=== PATIENT | female | born 1945 | race Caucasian/White ===

== ENCOUNTER 2022-02-06 09:15 | Inpatient (IN) | payer OTHER ==
[~2022-02-06] VITALS: Ht 154.9 cm; Wt 58.5 kg
[2022-02-06] MEDS ORDERED: NORVASC2.5 M1 PO (13:19)
[2022-02-06] MEDS ORDERED: CARVEDILOL25 MG (13:19)
[2022-02-10] MEDS ORDERED: HYDROCHLOROTHIA25 MG (07:59)
[2022-02-10] MEDS ORDERED: VASOTEC20 MG (08:00)
[2022-02-10] MEDS ORDERED: FAMOTIDINE40 MG (08:00)
[2022-02-10] MEDS ORDERED: FUROSEMIDE40 MG (08:00)
[2022-02-10] MEDS ORDERED: ATORVASTATIN CA40 MG (08:00)
[2022-02-10] MEDS ORDERED: VITAMIN D3125 MC1 (08:00)
== END 2022-02-12 15:49 | disposition expired | DRG 330 ==
LOC: ADM 09:15 → CIR.AMB 02-10 07:00 → SURH 02-10 07:55 → O/R 02-10 07:55 → EDSTATUS 02-10 09:15 → CIR.AMB 02-10 09:15 → SURH 02-10 09:15 → SURG 02-10 14:22 → SURH 02-10 18:42
PROVIDERS: ADMIT Colon & Rectal Surgery; ATTEND Colon & Rectal Surgery
PROC: 0DBP4ZZ Excision of Rectum, Percutaneous Endoscopic Approach (ICD-10-PCS; 2022-02-10)
PROC: 0DN84ZZ Release Small Intestine, Percutaneous Endoscopic Approach (ICD-10-PCS; 2022-02-10)
PROC: 0DJD8ZZ Inspection of Lower Intestinal Tract, Via Natural or Artificial Opening Endoscopic (ICD-10-PCS; 2022-02-10)
PROC: 0DTN4ZZ Resection of Sigmoid Colon, Percutaneous Endoscopic Approach (ICD-10-PCS; principal; 2022-02-10 07:00)
PROC: 4A12X4Z Monitoring of Cardiac Electrical Activity, External Approach (ICD-10-PCS; 2022-02-11)
DX: K57.32 Diverticulitis of large intestine without perforation or abscess without bleeding (principal); I97.121 Postprocedural cardiac arrest following other surgery; N73.6 Female pelvic peritoneal adhesions (postinfective); N99.4 Postprocedural pelvic peritoneal adhesions; K58.0 Irritable bowel syndrome with diarrhea; I11.9 Hypertensive heart disease without heart failure; I25.10 Atherosclerotic heart disease of native coronary artery without angina pectoris; Z20.822 Contact with and (suspected) exposure to COVID-19